=== PATIENT | female | born 1965 | race Caucasian/White ===

== ENCOUNTER 2022-11-05 13:40 | Outpatient (CLI) | payer OTHER, SELFPAY ==
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
== END 2022-11-05 13:41 | disposition home or self-care (01) ==
PROVIDERS: Visit Provider Nurse Practitioner Family
DX: M25.551 Pain in right hip (principal); M54.9 Dorsalgia, unspecified
CPT/HCPCS: 72100; 73502

== ENCOUNTER 2022-11-24 20:00 | Emergency (ER) | payer OTHER, SELFPAY ==
[2022-11-24 20:11] VITALS: BP 155/86; PULSE 60; RESP 18; TEMP 37; O2SAT 95; BMI 24.5
--- NOTE | 2022-11-24 20:57 | XRR_ITS ---
PROCEDURE INFORMATION: Exam: XR Lumbosacral Spine Exam date and time: 11/24/2022 9:04 PM Age: 57 years old Clinical indication: Low back pain; Additional info: Fall TECHNIQUE: Imaging protocol: Radiologic exam of the lumbosacral spine. Views: 2 or 3 views. COMPARISON: CR (PELVIS, ) 11/05/2022 2:07 PM FINDINGS: Bones/joints: Normal. No acute fracture. Normal alignment. Soft tissues: Unremarkable. XR/XR lumbar spine 2-3V* [id number] IMPRESSION: No acute findings.
[2022-11-24] MEDS: HYDROcodone-acetaminophen 5-325 mg Tablet 1 TAB PO (21:05)
[2022-11-24 21:09] LABS: Basophils # 0.1 10^3/uL (0.0-0.1); Basophils % 1.1 %; Eosinophils # 0.1 10^3/uL (0.0-0.8); Eosinophils % 1.2 %; Hematocrit 43.4 % (37.0-47.0); Hemoglobin 13.7 g/dL (11.5-15.3); Lymphocytes # 3.6 10^3/uL (0.8-4.8); Lymphocytes % 38.7 %; Mean Corpuscular HGB Conc 31.6 g/dL (30.0-36.0); Mean Corpuscular Hemoglobin 29.5 pg (28.0-34.0); Mean Corpuscular Volume 93.5 fl (81-99); Mean Platelet Volume 10.5 fL (7.4-10.4); Monocytes # 0.7 10^3/uL (0.2-0.9); Monocytes % 7.1 %; Neutrophils # 4.84 10^3/uL (1.8-7.7); Neutrophils % 51.6 %; Nucleated Red Blood Cells % 0 %; Platelet Count 290 10^3/cmm (130-400); Red Blood Count 4.64 10^6/uL (4.1-5.3); Red Cell Distribution Width 13.9 % (12.1-15.1); White Blood Count 9.4 10^3/uL (4.0-10.0)
[2022-11-24 21:15] LABS: Amphetamines Screen Urine Negative (Negative); Barbiturates Screen Urine Negative (Negative); Benzodiazepines Screen Urine Negative (Negative); Cocaine Screen Urine Negative (Negative); Opiate Screen Urine Negative (Negative); PCP Screen Urine Negative (Negative); THC Screen Urine Negative (Negative)
[2022-11-24 21:32] LABS: Alanine Aminotransferase 12 U/L (0-33); Albumin Level 4.3 g/dL (3.5-5.2); Alkaline Phosphatase 164 U/L (35-105); Blood Urea Nitrogen 12 mg/dL (6-20); Carbon Dioxide 27 mmol/L (22-29); Chloride 104 mmol/L (98-107); Globulin 3.2 g/dL (1.3-4.6); Glomerular Filtration Rate 57.1 mL/min (90-130); Glucose 131 mg/dL (65-115); Osmolality Calculated 296 mOsm/kg (285-295); Sodium 142 mmol/L (136-145); Total Bilirubin 0.2 mg/dL (0.15-1.2); Total Protein 7.5 g/dL (6.6-8.7)
[2022-11-24 21:34] LABS: Salicylate < 0.3 mg/dL (3-10)
[2022-11-24 21:35] LABS: Acetaminophen < 5.0 ug/mL (10-30); Alcohol Level < 10 mg/dL (0-10)
[2022-11-24 21:36] LABS: Anion Gap 16.1 (5-19); Aspartate Amino Transferase 14 U/L (0-32); Potassium 5.1 mmol/L (3.5-5.1)
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
--- NOTE | 2022-11-25 08:31 | DCPLANNER ---
optical engineering manager had message to speak with patient about getting established with a primary care physician. optical engineering manager called patient, unable to speak with patient at this time, a voicemail was left for patient to return employment evaluator/case manager phone call.
== END 2022-11-24 22:19 | disposition home or self-care (01) ==
PROVIDERS: Emergency Provider Emergency Medicine
DX: M54.50 Low back pain, unspecified (principal); Z79.82 Long term (current) use of aspirin; Y09 Assault by unspecified means
CPT/HCPCS: 36415; 72100; 80053; 80306; 80307; 85025; 99284

== ENCOUNTER 2022-11-25 16:33 | Inpatient (IN) | payer OTHER, SELFPAY ==
[2022-11-25 16:35] VITALS: BP 132/74; PULSE 86; RESP 14; TEMP 37.2; O2SAT 94; BMI 26.4
--- NOTE | 2022-11-25 16:37 | CTR_ITS ---
PROCEDURE INFORMATION: Exam: CT Head Without Contrast Exam date and time: 11/25/2022 5:09 PM Age: 57 years old Clinical indication: Altered mental status/memory loss; Confusion or disorientation; Additional info: AMS TECHNIQUE: Imaging protocol: Computed tomography of the head without contrast. Radiation optimization: All CT scans at this facility use at least one of these dose optimization techniques: automated exposure control; mA and/or kV adjustment per patient size (includes targeted exams where dose is matched to clinical indication); or iterative reconstruction. REPORTING DATA: Count of CT and Cardiac NM exams in prior 12 months: This patient has received 0 known CTs and 0 known cardiac nuclear medicine studies in the 12 months prior to the current study. COMPARISON: No relevant prior studies available. RADIATION DOSE METRICS: Total DLP (mGy-cm): 893.38 FINDINGS: Brain: No acute infarct. No hemorrhage. Unremarkable white matter for age. No mass effect. Cerebral ventricles: No ventriculomegaly. Paranasal sinuses: No significant inflammation. No fluid levels. Mastoid air cells: Visualized mastoid air cells are well aerated. Bones/joints: Unremarkable. No acute fracture. Soft tissues: Unremarkable. CT/CT head wo con* [id number] IMPRESSION: No acute intracranial abnormality.
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
[2022-11-25 17:10] LABS: Basophils # 0.1 10^3/uL (0.0-0.1); Basophils % 0.7 %; Eosinophils # 0.1 10^3/uL (0.0-0.8); Eosinophils % 0.8 %; Hematocrit 39.5 % (37.0-47.0); Hemoglobin 12.9 g/dL (11.5-15.3); Lymphocytes # 3.4 10^3/uL (0.8-4.8); Lymphocytes % 33.2 %; Mean Corpuscular HGB Conc 32.7 g/dL (30.0-36.0); Mean Corpuscular Hemoglobin 30.1 pg (28.0-34.0); Mean Corpuscular Volume 92.3 fl (81-99); Mean Platelet Volume 10.2 fL (7.4-10.4); Monocytes # 0.7 10^3/uL (0.2-0.9); Monocytes % 6.7 %; Neutrophils # 6.01 10^3/uL (1.8-7.7); Neutrophils % 58.2 %; Nucleated Red Blood Cells % 0 %; Platelet Count 280 10^3/cmm (130-400); Red Blood Count 4.28 10^6/uL (4.1-5.3); Red Cell Distribution Width 13.8 % (12.1-15.1); White Blood Count 10.3 10^3/uL (4.0-10.0)
[2022-11-25 17:57] LABS: Alanine Aminotransferase 10 U/L (0-33); Albumin Level 3.9 g/dL (3.5-5.2); Alkaline Phosphatase 142 U/L (35-105); Anion Gap 14.2 (5-19); Aspartate Amino Transferase 18 U/L (0-32); Blood Urea Nitrogen 14 mg/dL (6-20); Calcium 9.2 mg/dL (8.5-10.5); Carbon Dioxide 25 mmol/L (22-29); Chloride 104 mmol/L (98-107); Globulin 3.4 g/dL (1.3-4.6); Glomerular Filtration Rate 86.2 mL/min (90-130); Glucose 130 mg/dL (65-115); Osmolality Calculated 290 mOsm/kg (285-295); Potassium 4.2 mmol/L (3.5-5.1); Sodium 139 mmol/L (136-145); Total Bilirubin 0.2 mg/dL (0.15-1.2); Total Protein 7.3 g/dL (6.6-8.7)
[2022-11-25 17:58] LABS: Acetaminophen < 5.0 ug/mL (10-30); Alcohol Level < 10 mg/dL (0-10); Salicylate < 0.3 mg/dL (3-10)
[2022-11-25 18:49] VITALS: BP 119/79; PULSE 79; RESP 17; TEMP 37; O2SAT 94
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
[2022-11-25 20:52] LABS: Glucose Point of Care 232 mg/dL (70-110)
[2022-11-25] MEDS: ibuprofen 600 mg Tablet PO (21:39)
[2022-11-25] MEDS: OLANZapine 5 mg ODT PO (21:40)
[2022-11-25 22:00] VITALS: BP 157/91; PULSE 109; RESP 20; O2SAT 96
[2022-11-26] MEDS: ibuprofen 600 mg Tablet PO (02:10)
[2022-11-26] MEDS: cetylpyridinium Lozenge 1 EACH MUCOUS MEM (02:26)
[2022-11-26] MEDS: diphenhydrAMINE 50 mg/mL SDV 1mL IM (05:01)
[2022-11-26] MEDS: LORazepam 2 mg/mL INJ 1 mL IM (05:01)
[2022-11-26] MEDS: haloperidol inj 5 mg/mL INJ 1 mL IM (05:02)
[2022-11-26 06:00] VITALS: RESP 18
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
[2022-11-26] MEDS: atorvastatin 40 mg Tablet PO (09:17)
[2022-11-26] MEDS: aspirin 81 mg EC Tablet PO (09:17)
--- NOTE | 2022-11-26 10:45 | PC.NURSE ---
PT CURRENTLY DENIES SI/HI/AH/ VH. PT IS IRRITABLE AND NEGATIVE. PT DEMANDING OF STAFF. PT APPEARS FLAT IN AFFECT. PT IS USING PROFANITY IN SPEECH. PT CURRENTLY DENIES ANY FURTHER NEEDS AT THIS TIME.
[2022-11-26 14:00] VITALS: BP 123/72; PULSE 68; RESP 16; TEMP 36.2; O2SAT 91
[2022-11-26] MEDS: ibuprofen Oral Susp 100 mg/5mL UDC 600 MG PO (17:41)
[2022-11-26 19:40] LABS: Glucose Point of Care 167 mg/dL (70-110)
[2022-11-26 19:40] LABS: Glucose Point of Care 246 mg/dL (70-110)
[2022-11-26 19:55] LABS: Amphetamines Screen Urine Negative (Negative); Barbiturates Screen Urine Negative (Negative); Benzodiazepines Screen Urine Positive (Negative); Cocaine Screen Urine Negative (Negative); Opiate Screen Urine Negative (Negative); PCP Screen Urine Negative (Negative); THC Screen Urine Negative (Negative)
[2022-11-26 20:31] LABS: Glucose Point of Care 208 mg/dL (70-110)
[2022-11-26 21:55] VITALS: BP 154/71; PULSE 93; RESP 16; O2SAT 94
--- NOTE | 2022-11-26 21:55 | PC.NURSE ---
Patient refused to have her temp taken.
[2022-11-27 06:00] VITALS: BP 117/62; PULSE 69; RESP 17; TEMP 36.8; O2SAT 96
[2022-11-27 08:08] LABS: Glucose Point of Care 112 mg/dL (70-110)
[2022-11-27] MEDS: ARIPiprazole 10 mg Tablet 5 MG PO (08:45)
[2022-11-27] MEDS: aspirin 81 mg Chew Tablet PO (08:45)
[2022-11-27] MEDS: cetylpyridinium Lozenge 1 EACH MUCOUS MEM ×6 (08:46→20:55)
[2022-11-27] MEDS: atorvastatin 40 mg Tablet PO (08:46)
[2022-11-27] MEDS: nicotine 21 mg Patch 1 PATCH TRANSDERMA (10:35)
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
[2022-11-27 11:39] LABS: Glucose Point of Care 246 mg/dL (70-110)
[2022-11-27 14:00] VITALS: BP 118/72; PULSE 79; RESP 17; TEMP 36.7; O2SAT 96
[2022-11-27] MEDS: ibuprofen Oral Susp 100 mg/5mL UDC 600 MG PO (14:24)
[2022-11-27 18:01] LABS: Glucose Point of Care 191 mg/dL (70-110)
[2022-11-27 20:33] VITALS: BP 110/76; PULSE 86; RESP 17; TEMP 37; O2SAT 94
[2022-11-27] MEDS: trazodone 50 mg Tablet PO (20:56)
[2022-11-28 06:00] VITALS: BP 139/79; PULSE 65; RESP 17; TEMP 36.8; O2SAT 98
[2022-11-28 06:07] LABS: Glucose Point of Care 116 mg/dL (70-110)
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
[2022-11-28] MEDS: ARIPiprazole 10 mg Tablet 5 MG PO (08:02)
[2022-11-28] MEDS: aspirin 81 mg Chew Tablet PO (08:02)
[2022-11-28] MEDS: atorvastatin 40 mg Tablet PO (08:02)
[2022-11-28] MEDS: ibuprofen Oral Susp 100 mg/5mL UDC 600 MG PO (09:44)
[2022-11-28] MEDS: nicotine 21 mg Patch 1 PATCH TRANSDERMA (11:42)
[2022-11-28 12:01] LABS: Glucose Point of Care 149 mg/dL (70-110)
[2022-11-28] MEDS: cetylpyridinium Lozenge 1 EACH MUCOUS MEM ×3 (12:30→19:54)
[2022-11-28 14:00] VITALS: BP 127/81; PULSE 87; RESP 16; TEMP 36.6; O2SAT 96
[2022-11-28] MEDS: acetaminophen 325 mg Tablet 650 MG PO (19:54)
[2022-11-28 20:02] LABS: Glucose Point of Care 142 mg/dL (70-110)
[2022-11-28 21:29] VITALS: BP 113/73; PULSE 78; RESP 18; TEMP 36.8; O2SAT 96
--- NOTE | 2022-11-28 21:33 | PC.NURSE ---
PT IN DAY ROOM CONVERSING WITH PEER. PT DENIES SI/HI AND AVH AT THIS TIME. PT REPORTS PAIN AND WAS GIVEN WAS MEDICATION, SEE MARS FOR DETAILS. PT REQUEST SALVATORE FOR HER THROAT AND REQUEST HER MEDS BE CRUSHED. PT SITS WITH ROOM MATE AND WATCHES TV. NO DISTRESS IS NOTED.
[2022-11-28] MEDS: trazodone 50 mg Tablet PO (21:37)
[2022-11-29] MEDS: ibuprofen Oral Susp 100 mg/5mL UDC 600 MG PO ×3 (05:14→18:29)
[2022-11-29 06:00] VITALS: BP 109/69; PULSE 82; RESP 18; O2SAT 95
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
[2022-11-29] MEDS: nicotine 21 mg Patch 1 PATCH TRANSDERMA (07:32)
[2022-11-29] MEDS: atorvastatin 40 mg Tablet PO (08:13)
[2022-11-29] MEDS: ARIPiprazole 10 mg Tablet 5 MG PO (08:13)
[2022-11-29 08:14] LABS: Glucose Point of Care 191 mg/dL (70-110)
[2022-11-29] MEDS: aspirin 81 mg Chew Tablet PO (08:14)
[2022-11-29 12:00] LABS: Glucose Point of Care 155 mg/dL (70-110)
[2022-11-29 14:00] VITALS: BP 132/74; PULSE 78; RESP 20; TEMP 36.6; O2SAT 99
[2022-11-29 17:27] LABS: Glucose Point of Care 124 mg/dL (70-110)
[2022-11-29] MEDS: trazodone 50 mg Tablet PO (20:46)
[2022-11-29 21:27] VITALS: BP 133/78; PULSE 85; RESP 18; TEMP 36.6; O2SAT 97
[2022-11-29 21:39] LABS: Glucose Point of Care 166 mg/dL (70-110)
[2022-11-30] MEDS: ibuprofen Oral Susp 100 mg/5mL UDC 600 MG PO ×2 (04:13→13:59)
[2022-11-30 06:00] VITALS: BP 113/76; PULSE 80; RESP 18; TEMP 36.8; O2SAT 98
--- NOTE | 2022-11-30 06:24 | W.PM.NPUPNS ---
Vitals/I&O/Wt Last Vital Signs Temp 97.8 F 11/29/22 21:27 Pulse 85 11/29/22 21:27 Resp 18 11/29/22 21:27 BP 133/78 11/29/22 21:27 Pulse Ox 97 11/29/22 21:27 O2 Del Method Room Air 11/29/22 21:27 Data NPU 11/25/22 17:03 11/25/22 17:03 Involuntary Hold Information 96 Hour Hold: 96 Hour Involuntary Admission: Yes 96 Hour Hold Ending Date: 12/01/22 96 Hour Hold Ending Time: 17:37 Attestations NPU Medical Necessity Statement*: Inpatient hospitalization is medically necessary and the clinically appropriate intervention, at this time. We will monitor medications and make changes as indicated. Likely length of stay is 3-5 days Coding Level of Care Code Acute Code for [facility] Fwd Diagnoses
[2022-11-30] MEDS: nicotine 21 mg Patch 1 PATCH TRANSDERMA (07:28)
[2022-11-30 07:30] LABS: Glucose Point of Care 173 mg/dL (70-110)
--- NOTE | 2022-11-30 07:57 | PC.NURSE ---
Patient up this morning playing cards in the dayroom. Patient denies avh and si/hi. She stated, I feel great this morning. She said she has started journaling again and that it seems to help her a lot to get her feelings and thoughts onto paper. This RN encouraged her to continue this during her stay and after she leaves. dance therapist reported the patient had already showered this morning. She is calm and cooperative.
[2022-11-30] MEDS: ARIPiprazole 10 mg Tablet 5 MG PO (08:39)
[2022-11-30] MEDS: atorvastatin 40 mg Tablet PO (08:39)
[2022-11-30] MEDS: aspirin 81 mg Chew Tablet PO (08:39)
[2022-11-30] MEDS: cetylpyridinium Lozenge 1 EACH MUCOUS MEM ×2 (09:45→18:01)
[2022-11-30] MEDS: acetaminophen 325 mg Tablet 650 MG PO ×2 (11:32→18:01)
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
[2022-11-30 12:31] LABS: Glucose Point of Care 135 mg/dL (70-110)
[2022-11-30 14:00] VITALS: BP 112/76; PULSE 72; RESP 16; TEMP 36.6; O2SAT 96
[2022-11-30 19:34] LABS: Glucose Point of Care 192 mg/dL (70-110)
[2022-11-30 21:02] VITALS: BP 122/79; PULSE 76; RESP 16; TEMP 36.4; O2SAT 99
[2022-12-01 06:00] VITALS: BP 114/61; PULSE 69; RESP 16; TEMP 36.8; O2SAT 96
[2022-12-01] MEDS: ibuprofen Oral Susp 100 mg/5mL UDC 600 MG PO ×2 (06:37→12:11)
[2022-12-01] MEDS: nicotine 21 mg Patch 1 PATCH TRANSDERMA (06:38)
[2022-12-01 07:48] LABS: Glucose Point of Care 224 mg/dL (70-110)
[2022-12-01] MEDS: aspirin 81 mg Chew Tablet PO (08:23)
[2022-12-01] MEDS: atorvastatin 40 mg Tablet PO (08:23)
[2022-12-01] MEDS: ARIPiprazole 10 mg Tablet 5 MG PO (08:23)
[2022-12-01] MEDS: acetaminophen 325 mg Tablet 650 MG PO (10:45)
[2022-12-01 12:35] LABS: Glucose Point of Care 137 mg/dL (70-110)
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
[2022-12-01 13:43] VITALS: BP 122/81; PULSE 78; RESP 17; TEMP 36.7; O2SAT 97
[2022-12-01 16:56] LABS: Glucose Point of Care 146 mg/dL (70-110)
[2022-12-01] MEDS: cetylpyridinium Lozenge 1 EACH MUCOUS MEM (18:41)
[2022-12-01 19:48] LABS: Glucose Point of Care 241 mg/dL (70-110)
[2022-12-01 20:41] VITALS: BP 133/74; PULSE 75; RESP 18; TEMP 36.8; O2SAT 97
[2022-12-01] MEDS: trazodone 50 mg Tablet PO (20:49)
[2022-12-02 06:00] VITALS: BP 120/78; PULSE 63; RESP 16; TEMP 36.5; O2SAT 98
[2022-12-02] MEDS: nicotine 21 mg Patch 1 PATCH TRANSDERMA (06:24)
[2022-12-02 07:42] LABS: Glucose Point of Care 208 mg/dL (70-110)
[2022-12-02] MEDS: acetaminophen 325 mg Tablet 650 MG PO ×2 (07:50→15:44)
[2022-12-02] MEDS: aspirin 81 mg Chew Tablet PO (07:50)
[2022-12-02] MEDS: hyDROXYzine 25 mg Capsule 50 MG PO (07:50)
[2022-12-02] MEDS: ARIPiprazole 10 mg Tablet 5 MG PO (07:51)
[2022-12-02] MEDS: atorvastatin 40 mg Tablet PO (07:51)
[2022-12-02 11:43] LABS: Glucose Point of Care 123 mg/dL (70-110)
[2022-12-02 14:00] VITALS: BP 121/66; PULSE 74; RESP 17; TEMP 36.5; O2SAT 99
[2022-12-02 18:05] LABS: Glucose Point of Care 138 mg/dL (70-110)
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
[2022-12-02 20:39] VITALS: BP 145/79; PULSE 75; RESP 18; TEMP 36.6; O2SAT 98
[2022-12-02 20:43] LABS: Glucose Point of Care 224 mg/dL (70-110)
[2022-12-02] MEDS: ARIPiprazole Maintena 400 MG IM (21:02)
[2022-12-03] MEDS: nicotine 21 mg Patch 1 PATCH TRANSDERMA (05:58)
[2022-12-03 06:00] VITALS: BP 127/88; PULSE 91; RESP 18; O2SAT 97
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
--- NOTE | 2022-12-03 06:28 | PC.NURSE ---
Patient stated she had a boil on her right inner thigh that needed popped . Did observe a raised area. Will notify Dr. Pugh to see if he wants a hospitalist consult.
[2022-12-03 08:01] LABS: Glucose Point of Care 214 mg/dL (70-110)
[2022-12-03] MEDS: atorvastatin 40 mg Tablet PO (09:09)
[2022-12-03] MEDS: aspirin 81 mg Chew Tablet PO (09:09)
[2022-12-03] MEDS: ARIPiprazole 10 mg Tablet PO (09:09)
[2022-12-03 14:00] VITALS: BP 93/67; PULSE 81; RESP 16; TEMP 36.6; O2SAT 98
[2022-12-03] MEDS: acetaminophen 325 mg Tablet 650 MG PO ×2 (15:39→21:22)
[2022-12-03 17:38] LABS: Glucose Point of Care 170 mg/dL (70-110)
[2022-12-03] MEDS: hyDROXYzine 25 mg Capsule 50 MG PO (21:22)
[2022-12-03 21:26] VITALS: BP 147/80; PULSE 74; RESP 18; TEMP 36.4; O2SAT 97
[2022-12-03] MEDS: trazodone 50 mg Tablet PO (21:57)
[2022-12-03 22:02] LABS: Glucose Point of Care 200 mg/dL (70-110)
[2022-12-04 06:00] VITALS: BP 116/73; PULSE 77; RESP 17; O2SAT 95
[2022-12-04 07:53] LABS: Glucose Point of Care 189 mg/dL (70-110)
[2022-12-04] MEDS: atorvastatin 40 mg Tablet PO (08:52)
[2022-12-04] MEDS: aspirin 81 mg Chew Tablet PO (08:52)
[2022-12-04] MEDS: ARIPiprazole 10 mg Tablet PO (08:52)
[2022-12-04 12:16] LABS: Glucose Point of Care 128 mg/dL (70-110)
[2022-12-04 13:51] VITALS: BP 110/71; PULSE 78; RESP 16; TEMP 36.6; O2SAT 97
[2022-12-04] MEDS: nicotine 21 mg Patch 1 PATCH TRANSDERMA (16:00)
[2022-12-04 17:46] LABS: Glucose Point of Care 176 mg/dL (70-110)
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
[2022-12-04 20:47] VITALS: BP 155/71; PULSE 79; RESP 18; TEMP 36.9; O2SAT 97
[2022-12-04 21:12] LABS: Glucose Point of Care 185 mg/dL (70-110)
[2022-12-05 07:52] LABS: Glucose Point of Care 196 mg/dL (70-110)
[2022-12-05] MEDS: aspirin 81 mg Chew Tablet PO (08:54)
[2022-12-05] MEDS: ARIPiprazole 10 mg Tablet PO (08:54)
[2022-12-05] MEDS: atorvastatin 40 mg Tablet PO (08:54)
[2022-12-05] MEDS: nicotine 21 mg Patch 1 PATCH TRANSDERMA (10:12)
[2022-12-05 14:00] VITALS: BP 122/87; PULSE 95; RESP 17; TEMP 36.8; O2SAT 96
[2022-12-05] MEDS: hyDROXYzine 25 mg Capsule 50 MG PO (15:13)
[2022-12-05] MEDS: ibuprofen Oral Susp 100 mg/5mL UDC 600 MG PO (15:19)
[2022-12-05] MEDS: acetaminophen 325 mg Tablet 650 MG PO (16:48)
[2022-12-05 17:47] LABS: Glucose Point of Care 236 mg/dL (70-110)
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
[2022-12-05] MEDS: TRAMadol 50 mg Tablet PO (20:05)
[2022-12-05 20:16] VITALS: BP 118/74; PULSE 72; RESP 18; TEMP 36.5; O2SAT 97
[2022-12-05 20:41] LABS: Glucose Point of Care 179 mg/dL (70-110)
[2022-12-06 05:45] VITALS: BP 110/66; PULSE 68; RESP 18; O2SAT 94
[2022-12-06] MEDS: nicotine 21 mg Patch 1 PATCH TRANSDERMA (07:32)
[2022-12-06] MEDS: TRAMadol 50 mg Tablet PO (07:32)
[2022-12-06] MEDS: ARIPiprazole 10 mg Tablet PO (08:04)
[2022-12-06] MEDS: atorvastatin 40 mg Tablet PO (08:04)
[2022-12-06] MEDS: aspirin 81 mg Chew Tablet PO (08:04)
[2022-12-06 08:06] LABS: Glucose Point of Care 219 mg/dL (70-110)
[2022-12-06] MEDS: hyDROXYzine 25 mg Capsule 50 MG PO (08:58)
[2022-12-06 12:37] LABS: Glucose Point of Care 166 mg/dL (70-110)
[2022-12-06] MEDS: OLANZapine 5 mg ODT PO (14:04)
[2022-12-06] MEDS: ibuprofen 600 mg Tablet PO (15:57)
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
[2022-12-06 17:12] VITALS: BP 110/66; PULSE 68; RESP 18; TEMP 36.5; O2SAT 94
[2022-12-06 17:22] LABS: Glucose Point of Care 218 mg/dL (70-110)
--- NOTE | 2022-12-06 17:36 | PC.NURSE ---
At pt's discharge, Milton from [facility] will swing by [facility] pharmacy for the pt to pickup her medications.
== END 2022-12-06 17:38 | disposition home or self-care (01) | DRG 885 ==
LOC: ER 17:13 → NP 17:54
PROVIDERS: Admitting Provider Psychiatry & Neurology Psychiatry; Emergency Provider Emergency Medicine; Visit Provider Psychiatry & Neurology Psychiatry
DX: F20.9 Schizophrenia, unspecified (principal); Z59.00 Homelessness unspecified; Z91.410 Personal history of adult physical and sexual abuse; Z81.8 Family history of other mental and behavioral disorders; Z81.4 Family history of other substance abuse and dependence
CPT/HCPCS: 36415; 36416; 70450; 80053; 80306; 80307; 82962; 85025; 96372; 97150; 97165; 99285; J1200; J1630; J2060

== ENCOUNTER 2022-12-10 00:11 | Emergency (ER) | payer OTHER, SELFPAY ==
[2022-12-10 00:14] VITALS: BP 112/74; PULSE 92; RESP 16; TEMP 36.7; O2SAT 93; BMI 20.7
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
[2022-12-10 03:43] VITALS: BP 91/59; PULSE 80; RESP 16; O2SAT 93
[2022-12-10] MEDS: oxyCODONE-APAP 5-325 mg Tablet 1 TAB PO (04:00)
[2022-12-10 04:13] LABS: Glucose Point of Care 141 mg/dL (70-110)
== END 2022-12-10 04:25 | disposition home or self-care (01) ==
PROVIDERS: Emergency Provider Emergency Medicine
DX: S30.0XXA Contusion of lower back and pelvis, initial encounter (principal); S50.11XA Contusion of right forearm, initial encounter; Y04.2XXA Assault by strike against or bumped into by another person, initial encounter; Y92.098 Other place in other non-institutional residence as the place of occurrence of the external cause; Z59.01 Sheltered homelessness; Z79.82 Long term (current) use of aspirin
CPT/HCPCS: 36416; 71046; 72100; 73090; 82962; 99284

== ENCOUNTER 2022-12-10 23:32 | Inpatient (IN) | payer OTHER, SELFPAY ==
[2022-12-10 23:33] VITALS: BP 101/35; PULSE 89; RESP 18; TEMP 36.6; O2SAT 94; BMI 21.7
[2022-12-11] VITALS (10 sets, daily range): BP systolic 80–183; BP diastolic 41–105; PULSE 68–92; RESP 16–20; TEMP 36.9; O2SAT 92–99
[2022-12-11 01:39] LABS: Basophils # 0.1 10^3/uL (0.0-0.1); Basophils % 1.1 %; Eosinophils # 0.1 10^3/uL (0.0-0.8); Eosinophils % 0.9 %; Hematocrit 34.8 % (36-47); Lymphocytes # 3.9 10^3/uL (0.8-4.8); Lymphocytes % 33.3 %; Mean Corpuscular HGB Conc 32.5 g/dL (30-55); Mean Corpuscular Hemoglobin 30.6 pg (27-33); Mean Corpuscular Volume 94.3 fl (85-98); Mean Platelet Volume 10.4 fL (7.4-10.4); Monocytes # 0.9 10^3/uL (0.2-0.9); Monocytes % 7.3 %; Neutrophils # 6.76 10^3/uL (1.8-7.7); Neutrophils % 57.1 %; Nucleated Red Blood Cells % 0 %; Platelet Count 324 10^3/cmm (157-399); Red Blood Count 3.69 10^6/uL (3.85-5.65); Red Cell Distribution Width 14.2 % (12.1-15.1); White Blood Count 11.84 10^3/uL (3.29-11.43)
[2022-12-11 02:00] LABS: Alanine Aminotransferase 30 U/L (0-33); Albumin Level 4.1 g/dL (3.5-5.2); Alkaline Phosphatase 154 U/L (35-105); Anion Gap 15.5 (5-19); Aspartate Amino Transferase 13 U/L (0-32); Blood Urea Nitrogen 19 mg/dL (6-20); Calcium 8.8 mg/dL (8.5-10.5); Carbon Dioxide 24 mmol/L (22-29); Chloride 108 mmol/L (98-107); Globulin 3.2 g/dL (1.3-4.6); Glomerular Filtration Rate 86.2 mL/min (90-130); Glucose 110 mg/dL (65-115); Osmolality Calculated 301 mOsm/kg (285-295); Potassium 3.5 mmol/L (3.5-5.1); Sodium 144 mmol/L (136-145); Total Bilirubin 0.4 mg/dL (0.15-1.2); Total Protein 7.3 g/dL (6.6-8.7)
--- NOTE | 2022-12-11 02:12 | PC.NURSE ---
external vaginal and rectal exam of patient was done by this RN with Angelica transfer and pumphouse operator chief in the room. Patient did not show any signs of bleeding, drainage or tearing in vaginal or rectal areas. No redness was visualized around rectum or vagina. Patient did have blanchable redness on upper coccyx where she had been laying.
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
[2022-12-11] MEDS: sodium chloride 0.9% 1,000 ML 999 ML IV (03:02)
--- NOTE | 2022-12-11 05:02 | PC.NURSE ---
report called to MARU Cross at [facility].
[2022-12-11 06:04] LABS: Amphetamines Screen Urine Negative (Negative); Barbiturates Screen Urine Negative (Negative); Benzodiazepines Screen Urine Negative (Negative); Cocaine Screen Urine Negative (Negative); Opiate Screen Urine Negative (Negative); PCP Screen Urine Negative (Negative); THC Screen Urine Negative (Negative)
[2022-12-11 06:09] LABS: Add Urine Microscopic? YES; Bilirubin Urine Neg (Negative); Blood Urine 2+ (Negative); Glucose Urine UA 4+ (Normal); Ketones Urine 1+ (Negative); Leukocyte Esterase Urine 1+ (Negative); Nitrate Urine Positive (Negative); Protein Urine Trace (Negative); Urine Appearance Clear (CLEAR); Urine Color Yellow (Yellow); Urobilinogen Urine Norm (Negative); pH Urine 7 (5-7)
[2022-12-11 06:19] LABS: Add Urine Culture? No; Bacteria Urine TRACE /hpf; RBC Urine 0-4 /hpf (0-2); Squamous Epithelial Cell Urine 0-4 /hpf (0-5); WBC Urine 0-4 /hpf (0-5)
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
--- NOTE | 2022-12-11 09:00 | PC.PHAR ---
PT UNABLE TO VERIFY ANY MEDS. DOCUMENTED ALL EXTERNAL MEDS FILLED. IBUPROFEN 800 MG, ABILIFY MAINTENA 400MG SUSP IM, AND KETOROLAC 10MG UNABLE TO VERIFY WITH PHARMACY OR PT.
[2022-12-11] MEDS: ARIPiprazole 30 mg Tablet 15 MG PO (12:48)
--- NOTE | 2022-12-11 13:53 | PC.NURSE ---
Patient 96 hr rights reviewed with patient with [facility] armored vehicle officer Trent @0401. No questions verbalized at this time by patient. Patient copy was left at bedside, and no needs at this time stated by patient.
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
[2022-12-11 17:04] LABS: Glucose Point of Care 191 mg/dL (70-110)
[2022-12-11] MEDS: acetaminophen 325 mg Tablet 650 MG PO (17:26)
[2022-12-11] MEDS: ibuprofen 600 mg Tablet PO (18:50)
[2022-12-11] MEDS: TRAMadol 50 mg Tablet PO (19:53)
[2022-12-11] MEDS: trazodone 50 mg Tablet PO (19:53)
[2022-12-11 21:37] LABS: Glucose Point of Care 203 mg/dL (70-110)
[2022-12-11] MEDS: OLANZapine 5 mg ODT PO (23:24)
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
[2022-12-12] MEDS: cetylpyridinium Lozenge 1 EACH MUCOUS MEM (04:20)
[2022-12-12 06:00] VITALS: BP 118/67; PULSE 65; RESP 16; TEMP 36.9; O2SAT 97
[2022-12-12 07:45] LABS: Glucose Point of Care 211 mg/dL (70-110)
[2022-12-12] MEDS: ARIPiprazole 10 mg Tablet 15 MG PO (08:07)
[2022-12-12] MEDS: ibuprofen 600 mg Tablet PO ×2 (08:07→16:16)
[2022-12-12] MEDS: atorvastatin 40 mg Tablet PO (08:08)
[2022-12-12] MEDS: aspirin 81 mg EC Tablet PO (08:08)
[2022-12-12] MEDS: acetaminophen 325 mg Tablet 650 MG PO ×2 (08:58→17:48)
[2022-12-12] MEDS: hyDROXYzine 25 mg Capsule 50 MG PO ×2 (09:56→22:40)
--- NOTE | 2022-12-12 10:00 | PC.NURSE ---
PRN VISTARIL 50 MG GIVEN PO PER PT C/O ANXIETY, TEARFUL AFTER SPEAKING WITH PHYSICIAN THIS MORNING
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
[2022-12-12 11:30] LABS: Glucose Point of Care 204 mg/dL (70-110)
[2022-12-12 14:00] VITALS: BP 139/85; PULSE 69; RESP 18; TEMP 36.6; O2SAT 95
[2022-12-12] MEDS: nicotine 21 mg Patch 1 PATCH TRANSDERMA (14:16)
[2022-12-12 17:44] LABS: Glucose Point of Care 254 mg/dL (70-110)
[2022-12-12] MEDS: TRAMadol 50 mg Tablet PO (18:27)
[2022-12-12 20:31] LABS: Glucose Point of Care 202 mg/dL (70-110)
[2022-12-12] MEDS: trazodone 50 mg Tablet PO ×2 (20:46→22:40)
[2022-12-12 21:09] VITALS: BP 147/76; PULSE 81; RESP 16; TEMP 36.4; O2SAT 96
[2022-12-13] MEDS: OLANZapine 5 mg ODT PO ×2 (00:17→12:08)
[2022-12-13] MEDS: haloperidol 5 mg Tablet PO (00:44)
--- NOTE | 2022-12-13 00:46 | PC.NURSE ---
Pt extremely anxious requesting a shot . First anxiety medication administered was zyprexa and pt immediately wanted more medications, instructed patient that she had to wait at least 30 minutes prior to medication administration of another med. Pt now up at the desk to get next medication for anxiety, but wanted tea heated up. Then patient attempted to take the medication and states that the tea was too hot and spit the pill back into the cup. Request water be added to the tea, then will take the medication. PRN haldol administered at this time.
--- NOTE | 2022-12-13 03:14 | PC.NURSE ---
Pt came up to nurses station stating another pt was her , requesting more medication. Pt is calm at this time, and has had all PRNs available to her at this time. Pt given pudding per her request.
[2022-12-13 06:00] VITALS: BP 105/66; PULSE 65; RESP 18; O2SAT 95
[2022-12-13 06:09] LABS: Glucose Point of Care 145 mg/dL (70-110)
[2022-12-13] MEDS: ARIPiprazole 10 mg Tablet 15 MG PO (07:44)
[2022-12-13] MEDS: aspirin 81 mg EC Tablet PO (07:46)
[2022-12-13] MEDS: TRAMadol 50 mg Tablet PO ×2 (07:46→17:40)
[2022-12-13] MEDS: atorvastatin 40 mg Tablet PO (07:47)
[2022-12-13] MEDS: nicotine 21 mg Patch 1 PATCH TRANSDERMA (08:17)
[2022-12-13 08:32] LABS: Glucose Point of Care 207 mg/dL (70-110)
[2022-12-13] MEDS: hyDROXYzine 25 mg Capsule 50 MG PO ×2 (09:08→20:59)
[2022-12-13 12:33] LABS: Glucose Point of Care 183 mg/dL (70-110)
[2022-12-13 14:00] VITALS: BP 100/62; PULSE 83; RESP 18; O2SAT 95
[2022-12-13] MEDS: ibuprofen 600 mg Tablet PO (15:49)
[2022-12-13 17:31] LABS: Glucose Point of Care 140 mg/dL (70-110)
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
[2022-12-13] MEDS: acetaminophen 325 mg Tablet 650 MG PO (19:14)
[2022-12-13 19:49] VITALS: BP 124/74; PULSE 80; RESP 16; TEMP 36.5; O2SAT 98
[2022-12-13 20:53] LABS: Glucose Point of Care 127 mg/dL (70-110)
[2022-12-13] MEDS: loperamide 2 mg Capsule PO (20:59)
[2022-12-13] MEDS: trazodone 50 mg Tablet 75 MG PO (20:59)
[2022-12-14] MEDS: OLANZapine 5 mg ODT PO
--- NOTE | 2022-12-14 00:14 | PC.NURSE ---
Pt is up at nurses station demanding a shot because she can't sleep. Explained to the patient that that is not what those medications are used for. Pt is agitated and belligerent w/staff, PRN Zyprexa administer. Pt also became belligerent w/co-pt who came up for a snack. One on one care and redirection provided w/minimal effect. Increased staff presence. Pts medications explained to her, reinforcement is needed.
--- NOTE | 2022-12-14 00:50 | PC.NURSE ---
Addendum entered by Yancy Kruse RN 12/14/22 00:57: Sitter sitting w/pt across the vazquez did not hear the patient fall to the floor. Original Note: Pt pushed emergency light to bathroom, upon staff entry patient is found to be sitting on the floor in front of her toilet w/her legs bent up infront of her. Pt states that she slipped off of the toilet when sitting down and urinated in the floor. Upon examination pt HOSKINS w/ease, no redness or bruising, shortening or rotation of legs present. MAXIM. VSS b/p 115/66 P 103 R 18 T 98.4 O2 97% RA CBG 212. Pt assisted out of the floor with limited assist of one, new brief and clothing provided. Pt is ambulating up and down the hallway w/o difficulty. Monitoring continues.
[2022-12-14 00:51] LABS: Glucose Point of Care 212 mg/dL (70-110)
[2022-12-14] MEDS: TRAMadol 50 mg Tablet PO ×2 (02:00→23:43)
--- NOTE | 2022-12-14 02:04 | PC.NURSE ---
Pt is belligerent w/staff telling them they aren't doing their job, very loudly stating I'm done, done done . Pt is angrily pacing the hallway disrupting other patients sleep, w/behaviors. One on one care and redirection provided, with minimal effect. Staff presence increased, monitoring con't.
[2022-12-14 06:00] VITALS: BP 158/80; PULSE 84; RESP 16; TEMP 36.5; O2SAT 98
[2022-12-14] MEDS: hyDROXYzine 25 mg Capsule 50 MG PO ×2 (06:40→23:56)
[2022-12-14] MEDS: acetaminophen 325 mg Tablet 650 MG PO ×3 (06:43→19:46)
[2022-12-14 08:13] LABS: Glucose Point of Care 192 mg/dL (70-110)
[2022-12-14] MEDS: nicotine 21 mg Patch 1 PATCH TRANSDERMA (08:15)
[2022-12-14] MEDS: atorvastatin 40 mg Tablet PO (08:15)
[2022-12-14] MEDS: aspirin 81 mg EC Tablet PO (08:15)
[2022-12-14] MEDS: ARIPiprazole 10 mg Tablet 15 MG PO (08:15)
[2022-12-14] MEDS: ibuprofen 600 mg Tablet PO ×2 (09:11→15:58)
[2022-12-14 11:26] LABS: Glucose Point of Care 136 mg/dL (70-110)
--- NOTE | 2022-12-14 12:54 | PC.PT ---
Discussed PT referral with patient nurse who stated patient did not need physical therapy evaluation as she is doing very well with ambulation etc., and apparently fall was slipping off of toilet; several current notes state patient ambulating without difficulty; patient nurse stated she would cancel the order. No further attempts to be made at this time; will revisit with new orders.
[2022-12-14 14:00] VITALS: BP 94/56; PULSE 71; RESP 16; TEMP 37.1; O2SAT 99
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
[2022-12-14 17:30] LABS: Glucose Point of Care 153 mg/dL (70-110)
[2022-12-14] MEDS: loperamide 2 mg Capsule PO (18:03)
[2022-12-14 20:45] VITALS: BP 117/76; PULSE 78; RESP 18; TEMP 36.4; O2SAT 96
[2022-12-14] MEDS: trazodone 50 mg Tablet 75 MG PO (20:54)
[2022-12-14 21:25] LABS: Glucose Point of Care 155 mg/dL (70-110)
--- NOTE | 2022-12-14 23:45 | PC.NURSE ---
Pt up to the nurses station and can barely hold her eyes open at this time. Has several somatic c/o needing to have her hearing checked because her mom had vertigo and she is concerned that she has it as well. She also c/o her vision being bad. Instructed pt that her concerns and request will be passed to the physician for review. Pt then stated she wanted her q6h pill for pain, reinforced that that medication was as needed. Pt states that her pain is 8/10 at this time. PRN Ultram administered per orders. Pt escorted back to her room per her request.
[2022-12-15] MEDS: haloperidol 5 mg Tablet PO (01:20)
[2022-12-15] MEDS: OLANZapine 5 mg ODT PO ×3 (02:32→13:33)
[2022-12-15 06:00] VITALS: BP 92/57; PULSE 91; RESP 15; O2SAT 95
[2022-12-15 06:45] LABS: Glucose Point of Care 137 mg/dL (70-110)
[2022-12-15] MEDS: nicotine 21 mg Patch 1 PATCH TRANSDERMA (07:25)
[2022-12-15 08:04] LABS: Glucose Point of Care 196 mg/dL (70-110)
[2022-12-15] MEDS: ARIPiprazole 10 mg Tablet 15 MG PO (08:12)
[2022-12-15] MEDS: aspirin 81 mg EC Tablet PO (08:12)
[2022-12-15] MEDS: atorvastatin 40 mg Tablet PO (08:12)
[2022-12-15] MEDS: TRAMadol 50 mg Tablet PO ×2 (08:12→17:35)
--- NOTE | 2022-12-15 08:26 | PC.NURSE ---
Patient denies si/hi and avh this morning. She endorses depression and then when asking if there was anything specific that was making her feel depressed she began to have flight of ideas. She stated, I need to have someone take me to the bus station so I can get on a greyhound. It's about $160 with my 's discount. My brother, Harsha, I need to pay him off. I'm going to do that. I need to go to court on the . I told the CRISIS THERAPIST earlier. Can you tell the doctor? Patient very intrusive this morning, constantly at the nurses' station asking for various items.
[2022-12-15] MEDS: ibuprofen 600 mg Tablet PO (08:54)
[2022-12-15] MEDS: hyDROXYzine 25 mg Capsule 50 MG PO (10:49)
[2022-12-15 12:07] LABS: Glucose Point of Care 153 mg/dL (70-110)
[2022-12-15] MEDS: acetaminophen 325 mg Tablet 650 MG PO (13:01)
[2022-12-15 14:00] VITALS: BP 99/58; PULSE 85; RESP 16; TEMP 36.6; O2SAT 96
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
[2022-12-15 17:04] LABS: Glucose Point of Care 106 mg/dL (70-110)
[2022-12-15] MEDS: trazodone 50 mg Tablet 75 MG PO (20:12)
[2022-12-15 20:26] VITALS: BP 89/59; PULSE 79; RESP 20; TEMP 36.8; O2SAT 96
[2022-12-15 20:41] LABS: Glucose Point of Care 221 mg/dL (70-110)
[2022-12-16] MEDS: ibuprofen Oral Susp 100 mg/5mL UDC 200 MG PO (03:09)
[2022-12-16 06:00] VITALS: BP 128/74; PULSE 79; RESP 16; TEMP 36.6; O2SAT 98
[2022-12-16] MEDS: TRAMadol 50 mg Tablet PO ×2 (06:38→17:30)
[2022-12-16] MEDS: nicotine 21 mg Patch 1 PATCH TRANSDERMA (07:15)
[2022-12-16 07:47] LABS: Glucose Point of Care 200 mg/dL (70-110)
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
[2022-12-16] MEDS: atorvastatin 40 mg Tablet PO (07:57)
[2022-12-16] MEDS: aspirin 81 mg EC Tablet PO (07:57)
[2022-12-16] MEDS: ARIPiprazole 10 mg Tablet 20 MG PO (07:57)
[2022-12-16 08:26] LABS: Glucose Point of Care 217 mg/dL (70-110)
--- NOTE | 2022-12-16 08:58 | PC.NURSE ---
Patient off-unit. [facility]
[2022-12-16] MEDS: acetaminophen 325 mg Tablet 650 MG PO ×2 (09:54→19:46)
[2022-12-16] MEDS: hyDROXYzine 25 mg Capsule 50 MG PO ×2 (09:54→19:47)
[2022-12-16] MEDS: OLANZapine 5 mg ODT PO ×2 (11:47→22:48)
--- NOTE | 2022-12-16 12:07 | PC.NURSE ---
Patient crying at window, stated that she has never been loved in 56 years. This nurse attempted to help patient, but unsuccessful. Administered Zyprexa 5mg ODT to patient. Patient now in room, remaking bed
[2022-12-16 12:26] LABS: Glucose Point of Care 148 mg/dL (70-110)
[2022-12-16 14:00] VITALS: BP 90/61; PULSE 81; RESP 20; TEMP 36.6; O2SAT 96
[2022-12-16] MEDS: ibuprofen 600 mg Tablet PO (15:01)
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
[2022-12-16 17:24] LABS: Glucose Point of Care 166 mg/dL (70-110)
[2022-12-16 19:31] LABS: Glucose Point of Care 242 mg/dL (70-110)
[2022-12-16] MEDS: trazodone 50 mg Tablet 75 MG PO (19:47)
[2022-12-16 20:08] VITALS: BP 126/80; PULSE 81; RESP 18; TEMP 36.7; O2SAT 97
[2022-12-17] MEDS: haloperidol 5 mg Tablet PO (00:10)
[2022-12-17] MEDS: hyDROXYzine 25 mg Capsule 50 MG PO ×3 (05:00→21:19)
[2022-12-17 06:00] VITALS: BP 100/63; PULSE 69; RESP 16; TEMP 36.8; O2SAT 93
[2022-12-17 06:22] LABS: Glucose Point of Care 153 mg/dL (70-110)
[2022-12-17] MEDS: ibuprofen 600 mg Tablet PO ×2 (06:40→19:14)
[2022-12-17] MEDS: aspirin 81 mg EC Tablet PO (08:36)
[2022-12-17] MEDS: atorvastatin 40 mg Tablet PO (08:36)
[2022-12-17] MEDS: ARIPiprazole 10 mg Tablet 20 MG PO (08:36)
[2022-12-17] MEDS: nicotine 21 mg Patch 1 PATCH TRANSDERMA (08:36)
[2022-12-17] MEDS: TRAMadol 50 mg Tablet PO (08:38)
[2022-12-17] MEDS: cetylpyridinium Lozenge 1 EACH MUCOUS MEM (08:43)
[2022-12-17] MEDS: CELEcoxib 200 mg Capsule PO (10:07)
[2022-12-17 11:10] LABS: Estmated Average Glucose 163; Hemoglobin A1C 7.3 % (4.0-6.0)
[2022-12-17] MEDS: acetaminophen 325 mg Tablet 650 MG PO (13:04)
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
[2022-12-17 14:00] VITALS: BP 119/77; PULSE 56; RESP 19; TEMP 36.6; O2SAT 98
[2022-12-17 18:03] LABS: Glucose Point of Care 139 mg/dL (70-110)
[2022-12-17 21:04] LABS: Glucose Point of Care 215 mg/dL (70-110)
[2022-12-17] MEDS: trazodone 50 mg Tablet PO (21:19)
[2022-12-17] MEDS: OLANZapine 5 mg ODT PO (21:19)
[2022-12-17] MEDS: paliperidone ER 3 mg Tablet PO (21:19)
[2022-12-17 21:22] VITALS: BP 130/77; PULSE 76; RESP 18; O2SAT 96
[2022-12-18] MEDS: haloperidol 5 mg Tablet PO (00:42)
--- NOTE | 2022-12-18 01:23 | PC.NURSE ---
PT HANDED THIS RN PAPERS TO READ. PT STATED THOSE PAPERS ARE THE TRUTH AND IF I TELL YOU AND YOU DON'T DO NOTHING, THEN YOU WILL GO TO [facility] TO. THIS RN READ THE PAPERS AND THEY READ, I AM A FUGITIVE AND ZENIA, SUSAN AND GERARDO ARE IMPOSTERS. AND KIMBERLI QIU IS UP ALL NIGHT AND WON'T SLEEP. PLEASE CALL 911 I AM A FUGITIVE AND THE PEOPLE HERE ARE NOT REAL. RN ATTEMPTED TO EXPLAIN TO THE PT THAT SHE IS NOT A FUGITIVE SO I AM NOT ABLE TO CALL 911 BECAUSE NO ONE HAS BROKE THE LAW. PT THEN CALMED DOWN AND STATED WELL THATS ALL YOU HAD TO SAY, LONG I'M NOT BREAKING THE LAW I SUPPOSE ITS FINE. PT THEN WALKED OFF.
[2022-12-18] MEDS: haloperidol inj 5 mg/mL INJ 1 mL IM (01:39)
[2022-12-18] MEDS: LORazepam 2 mg/mL INJ 1 mL IM (01:40)
[2022-12-18] MEDS: diphenhydrAMINE 50 mg/mL SDV 1mL IM (01:40)
[2022-12-18 06:00] VITALS: RESP 16; BMI 22.5
[2022-12-18] MEDS: TRAMadol 50 mg Tablet PO (09:02)
[2022-12-18] MEDS: aspirin 81 mg EC Tablet PO (09:03)
[2022-12-18] MEDS: atorvastatin 40 mg Tablet PO (09:03)
[2022-12-18] MEDS: nicotine 21 mg Patch 1 PATCH TRANSDERMA (09:04)
[2022-12-18 12:09] LABS: Glucose Point of Care 158 mg/dL (70-110)
[2022-12-18] MEDS: hyDROXYzine 25 mg Capsule 50 MG PO ×2 (12:33→21:19)
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
[2022-12-18 12:38] VITALS: BP 90/62; PULSE 108; RESP 18; TEMP 36.7; O2SAT 94
[2022-12-18] MEDS: acetaminophen 325 mg Tablet 650 MG PO ×2 (13:44→19:37)
[2022-12-18] MEDS: ibuprofen 600 mg Tablet PO (16:11)
[2022-12-18 20:00] VITALS: BP 114/73; PULSE 76; RESP 20; O2SAT 95
[2022-12-18 20:19] LABS: Glucose Point of Care 178 mg/dL (70-110)
[2022-12-18] MEDS: paliperidone ER 6 mg Tablet PO (21:05)
[2022-12-18] MEDS: zolpidem 5 mg Tablet PO (21:05)
[2022-12-19] MEDS: ibuprofen 600 mg Tablet PO ×2 (03:38→20:49)
[2022-12-19 06:00] VITALS: RESP 18
[2022-12-19] MEDS: hyDROXYzine 25 mg Capsule 50 MG PO ×2 (06:43→14:56)
[2022-12-19] MEDS: aspirin 81 mg EC Tablet PO (08:03)
[2022-12-19] MEDS: atorvastatin 40 mg Tablet PO (08:03)
[2022-12-19] MEDS: nicotine 21 mg Patch 1 PATCH TRANSDERMA (08:04)
[2022-12-19] MEDS: cetylpyridinium Lozenge 1 EACH MUCOUS MEM (09:03)
[2022-12-19] MEDS: acetaminophen 325 mg Tablet 650 MG PO ×2 (10:39→18:05)
[2022-12-19] MEDS: TRAMadol 50 mg Tablet PO (13:08)
[2022-12-19 13:16] VITALS: BP 122/67; PULSE 86; RESP 16; TEMP 36.6; O2SAT 98
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
--- NOTE | 2022-12-19 13:45 | PC.NURSE ---
PT BLOOD SUGAR 133. CLINICAL ACCOUNT LIAISON SCANNED WRONG PT STICKER PRIOR TO OBTAINING BLOOD SUGAR. IT WAS INFORMED.
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
[2022-12-19 20:13] VITALS: BP 119/79; PULSE 71; RESP 18; O2SAT 97
[2022-12-19 20:25] LABS: Glucose Point of Care 175 mg/dL (70-110)
[2022-12-19] MEDS: zolpidem 5 mg Tablet PO (20:49)
[2022-12-19] MEDS: paliperidone ER 6 mg Tablet PO (20:49)
[2022-12-20 06:00] VITALS: BP 124/84; PULSE 72; RESP 18; O2SAT 96
--- NOTE | 2022-12-20 07:46 | PC.NURSE ---
During morning assessment, patient denies SI, HI, AVH, anxiety and depression. Patient stated that she is ready to leave. Patient stated that she slept well last night.
[2022-12-20 07:55] LABS: Glucose Point of Care 150 mg/dL (70-110)
[2022-12-20] MEDS: nicotine 21 mg Patch 1 PATCH TRANSDERMA (07:58)
[2022-12-20] MEDS: atorvastatin 40 mg Tablet PO (07:59)
[2022-12-20] MEDS: aspirin 81 mg EC Tablet PO (07:59)
[2022-12-20] MEDS: cetylpyridinium Lozenge 1 EACH MUCOUS MEM (08:40)
[2022-12-20] MEDS: hyDROXYzine 25 mg Capsule 50 MG PO (11:09)
--- NOTE | 2022-12-20 11:10 | PC.NURSE ---
Patient reporting anxiety 10. Patient states that she is anxious about leaving the unit. Administered 50mg Vistaril PO to patient. Patient is on way to group.
[2022-12-20 14:00] VITALS: BP 129/79; PULSE 68; RESP 16; TEMP 36.9; O2SAT 97
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
[2022-12-20] MEDS: TRAMadol 50 mg Tablet PO (15:39)
[2022-12-20 17:43] LABS: Glucose Point of Care 206 mg/dL (70-110)
[2022-12-20 19:52] VITALS: BP 125/76; PULSE 104; RESP 18; TEMP 37; O2SAT 96
[2022-12-20] MEDS: paliperidone ER 6 mg Tablet PO (19:53)
[2022-12-20] MEDS: zolpidem 5 mg Tablet PO (19:53)
[2022-12-20] MEDS: ibuprofen 600 mg Tablet PO (19:53)
[2022-12-20 21:02] LABS: Glucose Point of Care 215 mg/dL (70-110)
[2022-12-21 06:00] VITALS: BP 125/61; PULSE 88; RESP 16; TEMP 36.6; O2SAT 90
[2022-12-21] MEDS: TRAMadol 50 mg Tablet PO ×2 (06:51→21:04)
[2022-12-21] MEDS: nicotine 21 mg Patch 1 PATCH TRANSDERMA (07:46)
[2022-12-21] MEDS: aspirin 81 mg EC Tablet PO (08:15)
[2022-12-21] MEDS: atorvastatin 40 mg Tablet PO (08:15)
[2022-12-21] MEDS: acetaminophen 325 mg Tablet 650 MG PO (10:34)
[2022-12-21] MEDS: hyDROXYzine 25 mg Capsule 50 MG PO (12:39)
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
[2022-12-21 14:00] VITALS: BP 114/81; PULSE 100; RESP 18; TEMP 36.7; O2SAT 98
--- NOTE | 2022-12-21 17:53 | PC.OT ---
Unable to complete the JAIDEN assessment on 12/21/2022 at 5:53 pm. Will come tomorrow afternoon (after 3:30 pm on 09/21/2022) to finish.
[2022-12-21 20:23] VITALS: BP 114/79; PULSE 98; RESP 18; TEMP 36.5; O2SAT 97
[2022-12-21 20:34] LABS: Glucose Point of Care 167 mg/dL (70-110)
[2022-12-21] MEDS: trazodone 50 mg Tablet PO (21:04)
[2022-12-21] MEDS: zolpidem 5 mg Tablet PO (21:04)
[2022-12-21] MEDS: paliperidone ER 6 mg Tablet PO (21:04)
[2022-12-22] MEDS: acetaminophen 325 mg Tablet 650 MG PO (03:46)
[2022-12-22 06:00] VITALS: BP 126/80; PULSE 71; RESP 16; TEMP 36.7; O2SAT 99
[2022-12-22] MEDS: nicotine 21 mg Patch 1 PATCH TRANSDERMA (07:32)
[2022-12-22] MEDS: TRAMadol 50 mg Tablet PO (07:33)
[2022-12-22] MEDS: aspirin 81 mg EC Tablet PO (07:34)
[2022-12-22] MEDS: atorvastatin 40 mg Tablet PO (07:34)
[2022-12-22] MEDS: CELEcoxib 200 mg Capsule PO ×2 (09:04→20:23)
[2022-12-22 12:08] LABS: Glucose Point of Care 149 mg/dL (70-110)
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
[2022-12-22] MEDS: OLANZapine 5 mg ODT PO (13:05)
[2022-12-22 14:00] VITALS: BP 110/64; PULSE 86; RESP 16; TEMP 36.7; O2SAT 96
[2022-12-22 16:52] LABS: Glucose Point of Care 129 mg/dL (70-110)
[2022-12-22 20:13] VITALS: BP 116/69; PULSE 94; RESP 18; O2SAT 97
[2022-12-22 20:19] LABS: Glucose Point of Care 215 mg/dL (70-110)
[2022-12-22] MEDS: zolpidem 5 mg Tablet PO (20:23)
[2022-12-22] MEDS: trazodone 50 mg Tablet PO (20:23)
[2022-12-22] MEDS: paliperidone ER 6 mg Tablet PO (20:23)
[2022-12-22] MEDS: ibuprofen 600 mg Tablet PO (21:10)
--- NOTE | 2022-12-23 06:38 | PC.NURSE ---
pt resting resp 16
[2022-12-23] MEDS: CELEcoxib 200 mg Capsule PO ×2 (08:15→19:56)
[2022-12-23] MEDS: aspirin 81 mg EC Tablet PO (08:15)
[2022-12-23] MEDS: TRAMadol 50 mg Tablet PO (08:16)
[2022-12-23] MEDS: atorvastatin 40 mg Tablet PO (08:16)
[2022-12-23] MEDS: nicotine 21 mg Patch 1 PATCH TRANSDERMA (08:16)
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
[2022-12-23] MEDS: acetaminophen 325 mg Tablet 650 MG PO (12:41)
[2022-12-23 14:00] VITALS: BP 110/66; PULSE 86; RESP 20; TEMP 36.6; O2SAT 96
[2022-12-23] MEDS: ibuprofen 600 mg Tablet PO (15:35)
[2022-12-23 19:36] VITALS: BP 119/76; PULSE 80; RESP 18; TEMP 36.6; O2SAT 97
[2022-12-23] MEDS: zolpidem 5 mg Tablet PO (19:56)
[2022-12-23] MEDS: paliperidone ER 6 mg Tablet PO (19:56)
[2022-12-23] MEDS: trazodone 50 mg Tablet PO (19:56)
[2022-12-23 20:05] LABS: Glucose Point of Care 204 mg/dL (70-110)
[2022-12-24 05:56] LABS: Glucose Point of Care 131 mg/dL (70-110)
[2022-12-24 06:00] VITALS: BP 113/67; PULSE 98; RESP 18; TEMP 36.8; O2SAT 95
[2022-12-24] MEDS: TRAMadol 50 mg Tablet PO ×2 (06:33→18:38)
[2022-12-24] MEDS: CELEcoxib 200 mg Capsule PO ×2 (08:01→21:35)
[2022-12-24] MEDS: aspirin 81 mg EC Tablet PO (08:01)
[2022-12-24] MEDS: atorvastatin 40 mg Tablet PO (08:01)
[2022-12-24] MEDS: nicotine 21 mg Patch 1 PATCH TRANSDERMA (08:04)
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
[2022-12-24] MEDS: ibuprofen Oral Susp 100 mg/5mL UDC 200 MG PO (10:28)
[2022-12-24 13:37] VITALS: BP 121/77; PULSE 77; RESP 16; TEMP 36.6; O2SAT 97
[2022-12-24] MEDS: acetaminophen 325 mg Tablet 650 MG PO (14:19)
[2022-12-24 20:29] VITALS: BP 111/56; PULSE 76; RESP 17; O2SAT 97
[2022-12-24 20:55] LABS: Glucose Point of Care 155 mg/dL (70-110)
[2022-12-24] MEDS: paliperidone ER 6 mg Tablet PO (21:35)
[2022-12-24] MEDS: zolpidem 5 mg Tablet PO (21:35)
[2022-12-25 06:00] VITALS: RESP 16
[2022-12-25] MEDS: TRAMadol 50 mg Tablet PO (07:40)
[2022-12-25] MEDS: nicotine 21 mg Patch 1 PATCH TRANSDERMA (09:13)
[2022-12-25] MEDS: aspirin 81 mg EC Tablet PO (09:14)
[2022-12-25] MEDS: CELEcoxib 200 mg Capsule PO ×2 (09:14→20:11)
[2022-12-25] MEDS: atorvastatin 40 mg Tablet PO (09:14)
--- NOTE | 2022-12-25 09:53 | PC.NURSE ---
During morning assessment, patient denies SI, HI, AVH, anxiety, and depression. Patient states that he is ready to go home. Patient took his morning medications with no issue.
[2022-12-25] MEDS: hyDROXYzine 25 mg Capsule 50 MG PO (10:04)
--- NOTE | 2022-12-25 10:05 | PC.NURSE ---
Patient crying at window, requesting something for anxiety. Patient states that she is upset because she is thinking about her mother. This nurse administered 50mg Vistaril to patient. Will continue to closely monitor patient.
[2022-12-25] MEDS: acetaminophen 325 mg Tablet 650 MG PO ×2 (10:32→15:03)
[2022-12-25] MEDS: ibuprofen 600 mg Tablet PO (12:37)
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
[2022-12-25 14:00] VITALS: BP 116/75; PULSE 69; RESP 16; TEMP 37.1; O2SAT 98
[2022-12-25 17:33] LABS: Glucose Point of Care 269 mg/dL (70-110)
[2022-12-25] MEDS: paliperidone ER 6 mg Tablet PO (20:11)
[2022-12-25] MEDS: zolpidem 5 mg Tablet PO (20:11)
[2022-12-25] MEDS: trazodone 50 mg Tablet PO (20:11)
[2022-12-25 20:15] VITALS: BP 121/82; PULSE 81; RESP 18; TEMP 36.6; O2SAT 99
[2022-12-25 20:26] LABS: Glucose Point of Care 160 mg/dL (70-110)
[2022-12-26 06:00] VITALS: BP 132/82; PULSE 78; RESP 16; TEMP 36.7; O2SAT 96
[2022-12-26 08:04] LABS: Glucose Point of Care 160 mg/dL (70-110)
[2022-12-26] MEDS: nicotine 21 mg Patch 1 PATCH TRANSDERMA (08:20)
[2022-12-26] MEDS: aspirin 81 mg EC Tablet PO (08:21)
[2022-12-26] MEDS: atorvastatin 40 mg Tablet PO (08:21)
[2022-12-26] MEDS: CELEcoxib 200 mg Capsule PO ×2 (08:21→20:04)
[2022-12-26] MEDS: ibuprofen 600 mg Tablet PO (09:49)
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
[2022-12-26 13:18] VITALS: BP 108/71; PULSE 99; RESP 16; TEMP 36.6; O2SAT 98
[2022-12-26] MEDS: TRAMadol 50 mg Tablet PO (14:32)
[2022-12-26] MEDS: acetaminophen 325 mg Tablet 650 MG PO (17:43)
[2022-12-26] MEDS: paliperidone ER 6 mg Tablet PO (20:03)
[2022-12-26] MEDS: hyDROXYzine 25 mg Capsule 50 MG PO (20:03)
[2022-12-26] MEDS: trazodone 50 mg Tablet PO (20:04)
[2022-12-26] MEDS: zolpidem 5 mg Tablet 10 MG PO (20:04)
[2022-12-26 20:29] VITALS: BP 133/68; PULSE 81; RESP 18; TEMP 36.4; O2SAT 99
[2022-12-27 06:00] VITALS: BP 103/57; PULSE 82; RESP 17; TEMP 36.6; O2SAT 97
[2022-12-27] MEDS: atorvastatin 40 mg Tablet PO (08:03)
[2022-12-27] MEDS: aspirin 81 mg EC Tablet PO (08:03)
[2022-12-27] MEDS: CELEcoxib 200 mg Capsule PO (08:04)
[2022-12-27] MEDS: nicotine 21 mg Patch 1 PATCH TRANSDERMA (08:10)
[2022-12-27] MEDS: TRAMadol 50 mg Tablet PO (08:31)
[2022-12-27] MEDS: acetaminophen 325 mg Tablet 650 MG PO (10:54)
[2022-12-27 13:29] VITALS: BP 107/70; PULSE 82; RESP 17; TEMP 36.7; O2SAT 98
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
[2022-12-27 13:54] VITALS: BP 107/70; PULSE 82; RESP 17; TEMP 36.7; O2SAT 98
--- NOTE | 2022-12-30 09:13 | PC.NURSE ---
[facility] stating pt had notified them that she needed zolpedim mg prescription sent to [facility] in [place]. called [facility] spoke to technical expert lydia zolpedim 10mg @bedtime for 30days with one refill ordered.
== END 2022-12-27 16:13 | disposition home or self-care (01) | DRG 885 ==
LOC: ER 12-11 11:20 → NP 12-11 11:33
PROVIDERS: Emergency Medicine; Admitting Provider Psychiatry & Neurology Psychiatry; Emergency Provider Family Medicine; Visit Provider Psychiatry & Neurology Psychiatry
DX: F20.0 Paranoid schizophrenia (principal); F32.A Depression, unspecified; F43.10 Post-traumatic stress disorder, unspecified; Z62.810 Personal history of physical and sexual abuse in childhood; Z59.00 Homelessness unspecified
CPT/HCPCS: 36415; 36416; 80053; 80306; 81001; 82962; 83036; 85025; 96372; 97150; 97165; 97167; 99238; 99285; J1200; J1630; J2060; J7030